=== PATIENT | female | born 1955 | race Caucasian/White ===

== ENCOUNTER 2024-07-31 16:30 | Inpatient (IN) | payer MEDICARE ==
[~2024-07-31] VITALS: Ht 167.6 cm; Wt 95.3 kg
[2024-07-31 18:27] LABS: BASOPHILS % (AUTO) 0.2 % (0.0-2.0); EOSINOPHILS % (AUTO) 0.6 % (0.0-6.0); HEMATOCRIT 49 % (33-45); HEMOGLOBIN 16.6 g/dL (11.5-14.8); LYMPHOCYTES # (AUTO) 1.9 K/uL (0.8-4.8); LYMPHOCYTES % (AUTO) 23.8 % (20.0-44.0); MEAN CORPUSCULAR HEMOGLOBIN 30 PG (26.0-33.0); MEAN CORPUSCULAR HGB CONC 34 g/dl (31.0-36.0); MEAN CORPUSCULAR VOLUME 87 fL (82-100); MONOCYTES # (AUTO) 0.5 K/uL (0.1-1.30); MONOCYTES % (AUTO) 6.3 % (2.0-12.0); NEUTROPHILS # (AUTO) 5.4 K/uL (1.8-8.9); NEUTROPHILS % (AUTO) 69.1 % (43.0-81.0); PLATELET COUNT (AUTO) 145 K/uL (150-450); RED CELL DISTRIBUTION WIDTH 15.5 % (11.5-15.0); WHITE BLOOD COUNT (AUTO) 7.9 K/uL (4.3-11.0)
[2024-07-31 18:41] LABS: CALCIUM, SERUM 9.3 mg/dL (8.5-10.1); CARBON DIOXIDE 30 mmol/L (21-32); CHLORIDE 104 mmol/L (98-107); CREATININE 0.8 mg/dL (0.6-1.3); GLUCOSE 88 mg/dL (74-106); POTASSIUM 4.4 mmol/L (3.5-5.1); SODIUM SERUM 141 mmol/L (136-145); UREA NITROGEN, BLOOD 13 mg/dL (7-18)
[2024-07-31 18:47] LABS: ALANINE AMINOTRANSFERASE 34 U/L (12-78); ALBUMIN 3.9 g/dL (3.4-5.0); ALKALINE PHOSPHATASE 81 U/L (46-116); ASPARTATE AMINOTRANSFERASE 22 U/L (15-37); BILIRUBIN,DIRECT 0.2 mg/dL (0.0-0.2); BILIRUBIN,TOTAL 0.9 mg/dL (0.2-1.0); LIPASE 31 U/L (16-77)
[2024-07-31] MEDS: ONDANSETRON HCL 4 MG/5 ML SOLUTION PO ONE (19:19)
[2024-07-31] MEDS ORDERED: ONDANSETRON HCL/PF 4 MG/2 ML VIAL ONE (19:19)
[2024-07-31] MEDS: HYDROMORPHONE 1 MG/1 ML DISP.SYRIN IV ONE (19:20)
[2024-07-31] MEDS: hydrALAZINE HCL 25 MG TABLET PO ONE (19:59)
[2024-07-31 20:00] VITALS: O2SAT 95
[2024-07-31 23:00] VITALS: BP 133/78; TEMP 99; O2SAT 96
[2024-07-31] MEDS ORDERED: LABETALOL 20 MG/4 ML VIAL IV PRN (23:30)
[2024-07-31] MEDS: HYDROCORTISONE 5 MG TABLET PO SCH (23:30)
[2024-07-31] MEDS ORDERED: hydrALAZINE HCL IV 20 MG VIAL IV PRN (23:30)
[2024-07-31] MEDS ORDERED: ACETAMINOPHEN 325 MG TABLET PO PRN (23:30)
[2024-07-31] MEDS: APIXABAN 2.5 MG TABLET PO SCH (23:47)
[2024-07-31] MEDS: GABAPENTIN 400 MG CAPSULE PO SCH (23:48)
[2024-08-01] MEDS: HYDROMORPHONE 1 MG/1 ML DISP.SYRIN IV PRN (00:06)
[2024-08-01] MEDS ORDERED: HYDROCORTISONE 5 MG TABLET ONE (00:21)
[2024-08-01] MEDS: ONDANSETRON HCL/PF 4 MG/2 ML VIAL IVP PRN (04:09)
[2024-08-01] MEDS: LEVOTHYROXINE SODIUM 75 MCG TABLET PO SCH (06:40)
[2024-08-01] MEDS: HYDROCORTISONE 10 MG TABLET PO SCH (06:40)
[2024-08-01 06:46] LABS: ALBUMIN 3.3 g/dL (3.4-5.0); CALCIUM, SERUM 8.7 mg/dL (8.5-10.1); CREATININE 0.7 mg/dL (0.6-1.3); MAGNESIUM 2.4 mg/dL (1.8-2.4); PHOSPHORUS 4.2 mg/dL (2.5-4.9); POTASSIUM 4.3 mmol/L (3.5-5.1); TOTAL PROTEIN, SERUM 6.1 g/dL (6.4-8.2)
[2024-08-01 07:05] LABS: BASOPHILS % (AUTO) 0.1 % (0.0-2.0); EOSINOPHILS % (AUTO) 0.8 % (0.0-6.0); HEMATOCRIT 47 % (33-45); HEMOGLOBIN 15.4 g/dL (11.5-14.8); LYMPHOCYTES # (AUTO) 1.1 K/uL (0.8-4.8); LYMPHOCYTES % (AUTO) 19.4 % (20.0-44.0); MEAN CORPUSCULAR HEMOGLOBIN 29 PG (26.0-33.0); MEAN CORPUSCULAR HGB CONC 33 g/dl (31.0-36.0); MEAN CORPUSCULAR VOLUME 87 fL (82-100); MONOCYTES # (AUTO) 0.4 K/uL (0.1-1.30); MONOCYTES % (AUTO) 6.2 % (2.0-12.0); NEUTROPHILS # (AUTO) 4.2 K/uL (1.8-8.9); NEUTROPHILS % (AUTO) 73.5 % (43.0-81.0); PLATELET COUNT (AUTO) 145 K/uL (150-450); RED BLOOD CELL COUNT(AUTO) 5.33 MIL/uL (4.0-5.2); RED CELL DISTRIBUTION WIDTH 15.4 % (11.5-15.0); WHITE BLOOD COUNT (AUTO) 5.7 K/uL (4.3-11.0)
[2024-08-01 08:00] VITALS: BP 141/82; TEMP 97.7; O2SAT 99
[2024-08-01] MEDS: HYDROCORTISONE 5 MG TABLET PO SCH (08:40)
[2024-08-01] MEDS ORDERED: ROSU10TA2 PO (09:10)
[2024-08-01] MEDS ORDERED: NEBI5TAB8 PO (09:10)
[2024-08-01] MEDS ORDERED: GABA600T12 PO (09:10)
[2024-08-01] MEDS ORDERED: APIX5TAB PO (09:10)
[2024-08-01] MEDS ORDERED: ACET-2030 PO (09:10)
[2024-08-01] MEDS ORDERED: HYDR-4316 PO (09:10)
[2024-08-01] MEDS ORDERED: ALPR1TAB2 PO (09:10)
[2024-08-01] MEDS ORDERED: LEVO88TA5 PO (09:10)
[2024-08-01 16:00] VITALS: BP 100/74; TEMP 97.9; O2SAT 98
[2024-08-01 20:00] VITALS: BP 122/64; TEMP 98.4; O2SAT 97
[2024-08-01] MEDS: DOXAZOSIN MESYLATE (1 MG) 1 MG TABLET PO SCH (22:00)
[2024-08-02 07:23] LABS: CALCIUM, SERUM 8.7 mg/dL (8.5-10.1); CREATININE 0.7 mg/dL (0.6-1.3); POTASSIUM 5.1 mmol/L (3.5-5.1)
[2024-08-02 07:42] LABS: BASOPHILS % (AUTO) 0.1 % (0.0-2.0); EOSINOPHILS # (AUTO) 0.1 K/uL (0.0-0.7); EOSINOPHILS % (AUTO) 1.3 % (0.0-6.0); HEMATOCRIT 45 % (33-45); HEMOGLOBIN 14.9 g/dL (11.5-14.8); LYMPHOCYTES # (AUTO) 1.5 K/uL (0.8-4.8); LYMPHOCYTES % (AUTO) 28.1 % (20.0-44.0); MEAN CORPUSCULAR HEMOGLOBIN 29 PG (26.0-33.0); MEAN CORPUSCULAR HGB CONC 33 g/dl (31.0-36.0); MEAN CORPUSCULAR VOLUME 87 fL (82-100); MONOCYTES # (AUTO) 0.4 K/uL (0.1-1.30); MONOCYTES % (AUTO) 7.2 % (2.0-12.0); NEUTROPHILS # (AUTO) 3.3 K/uL (1.8-8.9); NEUTROPHILS % (AUTO) 63.3 % (43.0-81.0); PLATELET COUNT (AUTO) 139 K/uL (150-450); RED BLOOD CELL COUNT(AUTO) 5.13 MIL/uL (4.0-5.2); RED CELL DISTRIBUTION WIDTH 14.9 % (11.5-15.0); WHITE BLOOD COUNT (AUTO) 5.3 K/uL (4.3-11.0)
[2024-08-02 08:00] VITALS: BP 138/74; TEMP 97.9; O2SAT 100
[2024-08-02] MEDS: ALPRAZOLAM 1 MG TABLET PO PRN (10:06)
[2024-08-02 16:00] VITALS: BP 109/60; TEMP 97.5; O2SAT 96
[2024-08-02 20:00] VITALS: BP 150/82; TEMP 97.8; O2SAT 98
[2024-08-02 21:40] VITALS: BP 150/82
== END 2024-08-02 22:25 | disposition home or self-care (01) | DRG 394 ==
LOC: ER 16:50 → MED 22:38
PROVIDERS: ADMIT Internal Medicine; ATTEND Internal Medicine
DX: K43.9 Ventral hernia without obstruction or gangrene (principal); E27.40 Unspecified adrenocortical insufficiency; M48.54XA Collapsed vertebra, not elsewhere classified, thoracic region, initial encounter for fracture; G89.29 Other chronic pain; D69.6 Thrombocytopenia, unspecified; D75.1 Secondary polycythemia; Z88.2 Allergy status to sulfonamides; Z88.5 Allergy status to narcotic agent; E03.9 Hypothyroidism, unspecified; I10 Essential (primary) hypertension; Z98.1 Arthrodesis status; E66.01 Morbid (severe) obesity due to excess calories; K80.20 Calculus of gallbladder without cholecystitis without obstruction; Z87.09 Personal history of other diseases of the respiratory system; Z86.2 Personal history of diseases of the blood and blood-forming organs and certain disorders involving the immune mechanism; Z98.890 Other specified postprocedural states; Z79.01 Long term (current) use of anticoagulants; Z79.890 Hormone replacement therapy; Z79.899 Other long term (current) drug therapy
CPT/HCPCS: 36415; 72141-TC; 72146-TC; 72148-TC; 80048-TC; 80053-TC; 80076-TC; 83690-TC; 83735-TC; 83880; 84100-TC; 84484-TC; 85025-TC; 93307-TC; G0378; J1171; J2405